=== PATIENT | male | born 1955 | race Two or more races ===

== ENCOUNTER 2022-12-24 09:01 | Inpatient (IN) | payer OTHER ==
[~2022-12-24] VITALS: Ht 170.2 cm; Wt 51.9 kg
[2022-12-24] VITALS (16 sets, daily range): BP systolic 125–155; BP diastolic 69–86
[2022-12-24] MEDS ORDERED: NITROGLYCERIN 0.4 MG SL TAB SL ONE ×2 (09:12→09:15)
[2022-12-24] MEDS ORDERED: NITROGLYCERIN 50MG/250ML 250 ML IV ONE ×2 (09:15→09:30)
[2022-12-24] MEDS ORDERED: DexAMETHasone SOD PHOS 10MG/1ML VIAL INJ IV ONE (09:15)
[2022-12-24] MEDS ORDERED: ALBUTEROL SULF 2.5 MG/0.5ML(0.5%) NEB SOLN ONE (09:19)
[2022-12-24] MEDS ORDERED: IPRATROPIUM BROM 0.5 MG/2.5ML INH SOL ONE (09:19)
[2022-12-24] MEDS: MAGNESIUM SULFATE 1GM/100ML 100 ML IV SCH ×2 (09:26→10:30)
[2022-12-24] MEDS ORDERED: ALBUTEROL SULF 2.5 MG/0.5ML(0.5%) NEB SOLN NEB ONE (09:30)
[2022-12-24] MEDS ORDERED: IPRATROPIUM BROM 0.5 MG/2.5ML INH SOL NEB ONE (09:30)
[2022-12-24 09:45] LABS: Hematocrit 30.6 % (41.0-53.0); Hemoglobin 10.1 g/dL (13.5-17.5); Mean Corpuscular Hemoglobin 32.3 pg (28.0-32.0); Red Blood Cells 3.12 10^6/uL (4.5-5.90); Red Cell Distribution Width 15.1 % (11.8-14.3); White Blood Cell 12.9 10^3/uL (4.4-10.8)
[2022-12-24] MEDS ORDERED: CEFEPIME 1GM/ 50ML 50 ML IV ONE ×2 (09:45→10:00)
[2022-12-24 09:50] LABS: Basophils % (manual) 0 (0.0-2.0); Blast Cells 0; Metamyelocytes % 0; Myelocytes % 0; Promyelocytes % 0; Reactive Lymphocytes 0
[2022-12-24 10:04] LABS: Calcium 9.1 mg/dL (8.5-10.1); Potassium 3.8 mmol/L (3.5-5.1)
[2022-12-24 10:12] LABS: Albumin 3.1 g/dL (3.4-5.0); BUN/Creatinine Ratio 8.8 (10.0-20.0); Magnesium 2.2 mg/dL (1.6-2.6); Total Protein 5.9 g/dL (6.4-8.2)
[2022-12-24] MEDS ORDERED: ASPirin 325 MG TAB PO ONE ×2 (10:45→21:00)
[2022-12-24] MEDS ORDERED: VANCOMYCIN 1GM/250ML 250 ML IV ONE (11:00)
[2022-12-24 11:14] LABS: Band Neutrophils % (manual) 3; Eosinophils % (manual) 2 (0-7); Lymphocytes % (manual) 1 (10.0-50.0); Monocytes % (manual) 9 (0-12)
[2022-12-24] MEDS ORDERED: HYDROcodone-ACET 5/325MG TAB PO PRN (12:15)
[2022-12-24] MEDS ORDERED: ACETAMINOPHEN 325 MG TAB PO PRN (12:15)
[2022-12-24] MEDS ORDERED: DOCUSATE SOD 100 MG CAP PO PRN (12:15)
[2022-12-24] MEDS ORDERED: IPRATROPIUM BROM 0.5 MG/2.5ML INH SOL NEB PRN (12:15)
[2022-12-24] MEDS ORDERED: NITROGLYCERIN 0.4 MG SL TAB SL PRN (12:15)
[2022-12-24] MEDS ORDERED: ONDANSETRON HCL 4 MG/2 ML VIAL IV PRN (12:15)
[2022-12-24] MEDS ORDERED: MORPHINE SULFATE INJ 2 MG/ml SYRG IV PRN ×2 (12:15)
[2022-12-24] MEDS ORDERED: IOHEXOL 350 MG/ML 100ML IJ ONE (16:00)
[2022-12-24] MEDS ORDERED: HEPARIN DRIP/D5W 100UNITS/ML 250 ML IV SCH (20:30)
[2022-12-24] MEDS ORDERED: HEPARIN SODIUM (PORCINE) 5000 UNITS/ML 1ML VIAL IV ONE (20:30)
[2022-12-24 21:23] LABS: Basophils # (auto) 0 10 ^3/uL (0-0.2); Eosinophils # (auto) 0 10 ^3/uL (0-0.8); Lymphocytes # (auto) 0.4 10 ^3/uL (0.4-5.4); Monocytes # (auto) 0.2 10 ^3/uL (0-1.3); Red Blood Cells 2.72 10^6/uL (4.5-5.90)
[2022-12-24 21:24] LABS: Basophils % (auto) 0.4 % (0.0-2.0); Hematocrit 27.4 % (41.0-53.0); Hemoglobin 9.3 g/dL (13.5-17.5); Lymphocytes % (auto) 4.8 % (10.0-50.0); Mean Corpuscular Hemoglobin 34.3 pg (28.0-32.0); Mean Corpuscular Volume 100.7 fL (80.0-100.0); Neutrophils # (auto) 7.3 10 ^3/uL (1.6-8.6); Neutrophils % (auto) 91.8 % (37.0-80.0); Red Cell Distribution Width 14.9 % (11.8-14.3); White Blood Cell 7.9 10^3/uL (4.4-10.8)
[2022-12-24 22:06] LABS: INR 5.9 (0.9-1.15); Partial Thromboplastin Time 89.4 sec (24.6-33.4)
[2022-12-25] VITALS (75 sets, daily range): BP systolic 76–137; BP diastolic 44–86
[2022-12-25 05:16] LABS: Mean Corpuscular Hemoglobin 34.7 pg (28.0-32.0); Red Cell Distribution Width 15.1 % (11.8-14.3)
[2022-12-25 05:17] LABS: Albumin 2.5 g/dL (3.4-5.0); Calcium 8.9 mg/dL (8.5-10.1); Potassium 4.1 mmol/L (3.5-5.1)
[2022-12-25 05:18] LABS: Hemoglobin 9.9 g/dL (13.5-17.5); Mean Corpuscular Hgb Conc. 35.3 g/dL (32.0-36.0); Mean Corpuscular Volume 98.3 fL (80.0-100.0); Red Blood Cells 2.85 10^6/uL (4.5-5.90); White Blood Cell 7.7 10^3/uL (4.4-10.8)
[2022-12-25 05:22] LABS: BUN/Creatinine Ratio 9.1 (10.0-20.0); Bilirubin, Total 0.5 mg/dL (0.2-1.0); Total Protein 5.5 g/dL (6.4-8.2)
[2022-12-25 05:26] LABS: Basophils % (manual) 0 (0.0-2.0); Blast Cells 0; Eosinophils % (manual) 0 (0-7); Metamyelocytes % 0; Myelocytes % 0; Promyelocytes % 0; Reactive Lymphocytes 0
[2022-12-25 05:43] LABS: INR 6.71 (0.9-1.15)
[2022-12-25 05:47] LABS: Partial Thromboplastin Time > 139.0 sec (24.6-33.4)
[2022-12-25] MEDS ORDERED: cefTRIAXone 1GM/50ML D5W 50 ML IV SCH (06:00)
[2022-12-25] MEDS ORDERED: HEPARIN DRIP/D5W 100UNITS/ML 250 ML IV SCH ×2 (06:45→12:52)
[2022-12-25] MEDS ORDERED: REMDESIVIR PER PHARMACY 0 ML IV SCH (06:45)
[2022-12-25] MEDS ORDERED: AZITHROMYCIN 500MG/ 250ML 250 ML IV SCH (07:00)
[2022-12-25 07:01] LABS: Band Neutrophils % (manual) 4; Lymphocytes % (manual) 6 (10.0-50.0); Monocytes % (manual) 5 (0-12)
[2022-12-25] MEDS: ASPirin 81 mg TAB PO SCH (10:00)
[2022-12-25] MEDS: cefTRIAXone 1GM/50ML D5W 50 ML IV SCH (11:16)
[2022-12-25 11:52] LABS: INR 6.16 (0.9-1.15)
[2022-12-25 11:53] LABS: Partial Thromboplastin Time 94.5 sec (24.6-33.4)
[2022-12-25] MEDS ORDERED: ERGO1CAP12 PO (12:07)
[2022-12-25] MEDS ORDERED: PANT40T PO (12:07)
[2022-12-25] MEDS ORDERED: WARF5TAB71 PO (12:07)
[2022-12-25] MEDS ORDERED: ATOR40TA52 PO (12:07)
[2022-12-25] MEDS ORDERED: CARV6.2551 PO (12:07)
[2022-12-25] MEDS ORDERED: PRED10TA PO (12:07)
[2022-12-25] MEDS: AZITHROMYCIN 500MG/ 250ML 250 ML IV SCH (12:16)
[2022-12-25] MEDS: ALBUMIN 25% 100 ML IV SCH ×2 (14:50→21:30)
[2022-12-25] MEDS ORDERED: REMDESIVIR 100mg 100 MG in SODIUM CHL 0.9% 230 ML IV ONE (15:00)
[2022-12-25] MEDS ORDERED: PHYTONADIONE (VIT K)10 MG/ML 1ML VIAL SUBCUT ONE ×2 (15:15→21:30)
[2022-12-25 17:52] LABS: INR 7.36 (0.9-1.15); Partial Thromboplastin Time 117.6 sec (24.6-33.4)
[2022-12-25] MEDS ORDERED: EPOETIN ALFA-EPBX 10,000 UNIT/1ML VIAL SC ONE (21:00)
[2022-12-25] MEDS ORDERED: PANTOPRAZOLE 40 MG/10 ML VIAL INJ IV ONE (21:30)
[2022-12-25] MEDS: ATORVASTATIN 20 MG TAB PO SCH ×2 (21:34→22:00)
[2022-12-26] VITALS (48 sets, daily range): BP systolic 99–184; BP diastolic 57–100
[2022-12-26 04:54] LABS: Basophils # (auto) 0 10 ^3/uL (0-0.2); Basophils % (auto) 0.4 % (0.0-2.0); Eosinophils # (auto) 0 10 ^3/uL (0-0.8); Eosinophils % (auto) 0.4 % (0.0-7.0); Hematocrit 22.8 % (41.0-53.0); Lymphocytes # (auto) 0.6 10 ^3/uL (0.4-5.4); Lymphocytes % (auto) 7.7 % (10.0-50.0); Mean Corpuscular Hemoglobin 34.5 pg (28.0-32.0); Mean Corpuscular Hgb Conc. 34.9 g/dL (32.0-36.0); Mean Corpuscular Volume 98.7 fL (80.0-100.0); Monocytes # (auto) 0.6 10 ^3/uL (0-1.3); Monocytes % (auto) 7.8 % (0.0-12.0); Neutrophils % (auto) 83.7 % (37.0-80.0); Red Blood Cells 2.31 10^6/uL (4.5-5.90); Red Cell Distribution Width 15.3 % (11.8-14.3); White Blood Cell 7.2 10^3/uL (4.4-10.8)
[2022-12-26] MEDS: ALBUMIN 25% 100 ML IV SCH (05:23)
[2022-12-26 05:52] LABS: INR 5.69 (0.9-1.15); Partial Thromboplastin Time 97.8 sec (24.6-33.4)
[2022-12-26 05:57] LABS: Albumin 2.5 g/dL (3.4-5.0); BUN/Creatinine Ratio 7.7 (10.0-20.0); Bilirubin, Total 0.4 mg/dL (0.2-1.0); Potassium 3.1 mmol/L (3.5-5.1); Total Protein 5.3 g/dL (6.4-8.2)
[2022-12-26] MEDS ORDERED: PHYTONADIONE (VIT K)10 MG/ML 1ML VIAL SUBCUT ONE (06:15)
[2022-12-26] MEDS: cefTRIAXone 1GM/50ML D5W 50 ML IV SCH (08:48)
[2022-12-26] MEDS: ASPirin 81 mg TAB PO SCH (08:49)
[2022-12-26] MEDS ORDERED: PANTOPRAZOLE 40 MG/10 ML VIAL INJ IV SCH (10:00)
[2022-12-26] MEDS: DexAMETHasone 4 MG TAB PO SCH (10:05)
[2022-12-26] MEDS: AZITHROMYCIN 500MG/ 250ML 250 ML IV SCH (10:05)
[2022-12-26 13:47] LABS: Hematocrit 25.5 % (41.0-53.0); Hemoglobin 8.8 g/dL (13.5-17.5)
[2022-12-26 13:54] LABS: INR 3.03 (0.9-1.15); Partial Thromboplastin Time 61.9 sec (24.6-33.4)
[2022-12-26] MEDS ORDERED: REMDESIVIR 100mg 50 MG in SODIUM CHL 0.9% 240 ML IV SCH (15:00)
[2022-12-26] MEDS: ATORVASTATIN 20 MG TAB PO SCH ×2 (20:51→21:44)
[2022-12-26] MEDS: PANTOPRAZOLE 40 MG/10 ML VIAL INJ IV SCH (21:44)
[2022-12-27] VITALS (25 sets, daily range): BP systolic 125–176; BP diastolic 73–95
[2022-12-27 05:05] LABS: Hemoglobin 8.2 g/dL (13.5-17.5)
[2022-12-27 05:07] LABS: Hematocrit 23.3 % (41.0-53.0); Mean Corpuscular Hemoglobin 34.6 pg (28.0-32.0); Mean Corpuscular Hgb Conc. 35.3 g/dL (32.0-36.0); Red Blood Cells 2.38 10^6/uL (4.5-5.90); Red Cell Distribution Width 15.1 % (11.8-14.3); White Blood Cell 6.1 10^3/uL (4.4-10.8)
[2022-12-27 05:08] LABS: Albumin 2.7 g/dL (3.4-5.0); Potassium 3.7 mmol/L (3.5-5.1)
[2022-12-27 05:10] LABS: Basophils % (manual) 0 (0.0-2.0); Blast Cells 0; Eosinophils % (manual) 0 (0-7); Metamyelocytes % 0; Myelocytes % 0; Promyelocytes % 0; Reactive Lymphocytes 0
[2022-12-27 05:11] LABS: BUN/Creatinine Ratio 7.9 (10.0-20.0); Bilirubin, Total 0.5 mg/dL (0.2-1.0); Total Protein 5.3 g/dL (6.4-8.2)
[2022-12-27 05:12] LABS: INR 1.29 (0.9-1.15); Partial Thromboplastin Time 45.8 sec (24.6-33.4)
[2022-12-27] MEDS ORDERED: SODIUM CHL 0.9% 1000 ML BAG XX ONE (07:00)
[2022-12-27 09:08] LABS: Band Neutrophils % (manual) 1; Lymphocytes % (manual) 9 (10.0-50.0); Monocytes % (manual) 4 (0-12)
[2022-12-27] MEDS: cefTRIAXone 1GM/50ML D5W 50 ML IV SCH (09:13)
[2022-12-27] MEDS: PANTOPRAZOLE 40 MG/10 ML VIAL INJ IV SCH ×2 (09:15→20:52)
[2022-12-27] MEDS: ASPirin 81 mg TAB PO SCH (09:15)
[2022-12-27] MEDS: DexAMETHasone 4 MG TAB PO SCH (09:16)
[2022-12-27] MEDS: HEPARIN SODIUM (PORCINE) 5000 UNITS/ML 1ML VIAL SC SCH ×2 (09:17→20:52)
[2022-12-27] MEDS: AZITHROMYCIN 500MG/ 250ML 250 ML IV SCH (10:04)
[2022-12-27] MEDS: ATORVASTATIN 20 MG TAB PO SCH (20:52)
[2022-12-28] VITALS (16 sets, daily range): BP systolic 106–184; BP diastolic 58–96
[2022-12-28 05:39] LABS: Hematocrit 23.2 % (41.0-53.0); Hemoglobin 8.4 g/dL (13.5-17.5)
[2022-12-28 05:50] LABS: INR 1.05 (0.9-1.15); Partial Thromboplastin Time 37.5 sec (24.6-33.4)
[2022-12-28 05:53] LABS: Calcium 9.2 mg/dL (8.5-10.1); Potassium 3.7 mmol/L (3.5-5.1)
[2022-12-28 05:58] LABS: Albumin 2.6 g/dL (3.4-5.0); BUN/Creatinine Ratio 9.1 (10.0-20.0); Bilirubin, Total 0.4 mg/dL (0.2-1.0); Total Protein 5.3 g/dL (6.4-8.2)
[2022-12-28] MEDS: PANTOPRAZOLE 40 MG/10 ML VIAL INJ IV SCH ×2 (09:16→21:46)
[2022-12-28] MEDS: AZITHROMYCIN 500MG/ 250ML 250 ML IV SCH (09:17)
[2022-12-28] MEDS: ASPirin 81 mg TAB PO SCH (09:17)
[2022-12-28] MEDS: cefTRIAXone 1GM/50ML D5W 50 ML IV SCH (09:17)
[2022-12-28] MEDS: HEPARIN SODIUM (PORCINE) 5000 UNITS/ML 1ML VIAL SC SCH ×2 (09:18→21:49)
[2022-12-28] MEDS: DexAMETHasone 4 MG TAB PO SCH (09:37)
[2022-12-28] MEDS: ATORVASTATIN 20 MG TAB PO SCH (21:50)
[2022-12-29] VITALS (10 sets, daily range): BP systolic 140–176; BP diastolic 80–94
[2022-12-29 05:29] LABS: Hematocrit 24.9 % (41.0-53.0); Hemoglobin 8.5 g/dL (13.5-17.5)
[2022-12-29 05:40] LABS: Potassium 4.2 mmol/L (3.5-5.1)
[2022-12-29 05:50] LABS: Albumin 2.7 g/dL (3.4-5.0); BUN/Creatinine Ratio 9.7 (10.0-20.0); Bilirubin, Total 0.3 mg/dL (0.2-1.0); Calcium 9.2 mg/dL (8.5-10.1); Total Protein 5.5 g/dL (6.4-8.2)
[2022-12-29] MEDS: cefTRIAXone 1GM/50ML D5W 50 ML IV SCH (09:32)
[2022-12-29] MEDS: PANTOPRAZOLE 40 MG/10 ML VIAL INJ IV SCH ×2 (10:12→20:09)
[2022-12-29] MEDS: ASPirin 81 mg TAB PO SCH (10:12)
[2022-12-29] MEDS: DexAMETHasone 4 MG TAB PO SCH (10:12)
[2022-12-29] MEDS: AZITHROMYCIN 500MG/ 250ML 250 ML IV SCH (10:12)
[2022-12-29] MEDS: HEPARIN SODIUM (PORCINE) 5000 UNITS/ML 1ML VIAL SC SCH ×2 (10:13→20:10)
[2022-12-29] MEDS: ATORVASTATIN 20 MG TAB PO SCH (20:09)
[2022-12-30] VITALS (8 sets, daily range): BP systolic 153–192; BP diastolic 80–111
[2022-12-30] MEDS: LABETALOL HCL 5 MG/ML 4ML SYRINGE IV PRN ×5 (01:32→18:03)
[2022-12-30] MEDS: cefTRIAXone 1GM/50ML D5W 50 ML IV SCH (08:41)
[2022-12-30] MEDS: ASPirin 81 mg TAB PO SCH (09:09)
[2022-12-30] MEDS: DexAMETHasone 4 MG TAB PO SCH (09:10)
[2022-12-30] MEDS: PANTOPRAZOLE 40 MG/10 ML VIAL INJ IV SCH ×2 (09:10→21:36)
[2022-12-30] MEDS: AZITHROMYCIN 500MG/ 250ML 250 ML IV SCH (09:10)
[2022-12-30] MEDS: HEPARIN SODIUM (PORCINE) 5000 UNITS/ML 1ML VIAL SC SCH ×2 (09:16→21:42)
[2022-12-30] MEDS ORDERED: amLODIPine BESYLATE 5 MG TAB PO ONE (15:00)
[2022-12-30] MEDS: MEROPENEM 1GM IVPB 100 ML IV SCH (18:46)
[2022-12-30] MEDS: ATORVASTATIN 20 MG TAB PO SCH (21:36)
[2022-12-31] VITALS (16 sets, daily range): BP systolic 102–170; BP diastolic 60–90
[2022-12-31 05:58] LABS: Albumin 2.8 g/dL (3.4-5.0); Calcium 9.5 mg/dL (8.5-10.1); Potassium 3.9 mmol/L (3.5-5.1)
[2022-12-31] MEDS: MEROPENEM 1GM IVPB 100 ML IV SCH ×2 (06:00→17:44)
[2022-12-31 06:01] LABS: BUN/Creatinine Ratio 9.7 (10.0-20.0); Bilirubin, Total 0.3 mg/dL (0.2-1.0); Total Protein 5.2 g/dL (6.4-8.2)
[2022-12-31 06:02] LABS: Hematocrit 24.3 % (41.0-53.0); Hemoglobin 8.5 g/dL (13.5-17.5)
[2022-12-31] MEDS: LABETALOL HCL 5 MG/ML 4ML SYRINGE IV PRN (06:07)
[2022-12-31] MEDS ORDERED: SODIUM CHL 0.9% 1000 ML BAG XX ONE (07:00)
[2022-12-31] MEDS: DexAMETHasone 4 MG TAB PO SCH (08:11)
[2022-12-31] MEDS: ASPirin 81 mg TAB PO SCH (08:11)
[2022-12-31] MEDS: PANTOPRAZOLE 40 MG/10 ML VIAL INJ IV SCH ×2 (08:11→22:01)
[2022-12-31] MEDS: AZITHROMYCIN 500MG/ 250ML 250 ML IV SCH (08:12)
[2022-12-31] MEDS: HEPARIN SODIUM (PORCINE) 5000 UNITS/ML 1ML VIAL SC SCH ×2 (08:13→22:04)
[2022-12-31] MEDS: amLODIPine BESYLATE 5 MG TAB PO SCH (08:30)
[2022-12-31] MEDS ORDERED: EPOETIN ALFA-EPBX 4,000 UNIT/ML VIAL SC ONE (21:00)
[2022-12-31] MEDS ORDERED: HEPARIN SODIUM (PORCINE) 5000 UNITS/ML 1ML VIAL ONE (21:48)
[2022-12-31] MEDS: ATORVASTATIN 20 MG TAB PO SCH (22:01)
[2023-01-01] VITALS (7 sets, daily range): BP systolic 123–152; BP diastolic 73–89
[2023-01-01 04:53] LABS: Hemoglobin 8.7 g/dL (13.5-17.5)
[2023-01-01 05:05] LABS: BUN/Creatinine Ratio 6.7 (10.0-20.0); Calcium 10.1 mg/dL (8.5-10.1); Potassium 4.3 mmol/L (3.5-5.1)
[2023-01-01] MEDS: MEROPENEM 1GM IVPB 100 ML IV SCH ×2 (06:14→18:40)
[2023-01-01] MEDS: PANTOPRAZOLE 40 MG/10 ML VIAL INJ IV SCH ×2 (13:05→21:56)
[2023-01-01] MEDS: ASPirin 81 mg TAB PO SCH (13:06)
[2023-01-01] MEDS: amLODIPine BESYLATE 5 MG TAB PO SCH (13:07)
[2023-01-01] MEDS: AZITHROMYCIN 500MG/ 250ML 250 ML IV SCH (13:08)
[2023-01-01] MEDS: DexAMETHasone 4 MG TAB PO SCH (13:08)
[2023-01-01] MEDS: HEPARIN SODIUM (PORCINE) 5000 UNITS/ML 1ML VIAL SC SCH ×2 (14:52→21:55)
[2023-01-01] MEDS: ATORVASTATIN 20 MG TAB PO SCH (21:53)
[2023-01-02 04:55] LABS: Hemoglobin 9.7 g/dL (13.5-17.5); White Blood Cell 8.2 10^3/uL (4.4-10.8)
[2023-01-02 04:57] LABS: Hematocrit 27.2 % (41.0-53.0); Mean Corpuscular Hemoglobin 35.2 pg (28.0-32.0); Mean Corpuscular Hgb Conc. 35.9 g/dL (32.0-36.0); Mean Corpuscular Volume 98.2 fL (80.0-100.0); Red Blood Cells 2.77 10^6/uL (4.5-5.90); Red Cell Distribution Width 15.7 % (11.8-14.3)
[2023-01-02 04:59] LABS: Band Neutrophils % (manual) 0; Basophils % (manual) 0 (0.0-2.0); Blast Cells 0; Eosinophils % (manual) 0 (0-7); Metamyelocytes % 0; Myelocytes % 0; Promyelocytes % 0; Reactive Lymphocytes 0
[2023-01-02 05:00] VITALS: BP 157/92
[2023-01-02 05:09] LABS: Calcium 9.6 mg/dL (8.5-10.1); Potassium 4.9 mmol/L (3.5-5.1)
[2023-01-02 05:14] LABS: BUN/Creatinine Ratio 7.3 (10.0-20.0); Bilirubin, Total 0.5 mg/dL (0.2-1.0); Total Protein 5.6 g/dL (6.4-8.2)
[2023-01-02 06:15] VITALS: BP 146/86
[2023-01-02] MEDS: MEROPENEM 1GM IVPB 100 ML IV SCH (06:27)
[2023-01-02 08:07] LABS: Lymphocytes % (manual) 14 (10.0-50.0); Monocytes % (manual) 7 (0-12)
[2023-01-02] MEDS ORDERED: SODIUM CHL 0.9% 1000 ML BAG XX ONE (08:30)
[2023-01-02 09:32] VITALS: BP 182/101
[2023-01-02 17:28] VITALS: BP 138/75
[2023-01-02] MEDS: ATORVASTATIN 20 MG TAB PO SCH (21:57)
[2023-01-02] MEDS: PANTOPRAZOLE 40 MG/10 ML VIAL INJ IV SCH (21:57)
[2023-01-02] MEDS: HEPARIN SODIUM (PORCINE) 5000 UNITS/ML 1ML VIAL SC SCH (21:59)
[2023-01-02 22:00] VITALS: BP 106/80
[2023-01-02] MEDS ORDERED: MEROPENEM 500MG IVPB 50 ML IV SCH (22:00)
[2023-01-03 05:00] VITALS: BP 122/80
[2023-01-03 09:00] VITALS: BP 126/79
[2023-01-03] MEDS ORDERED: AML5T PO (09:45)
[2023-01-03] MEDS ORDERED: ATOR20TA50 PO (09:45)
[2023-01-03] MEDS ORDERED: ASPI-325 PO (09:45)
[2023-01-03] MEDS ORDERED: ERTAPENEM SOD INJ 1 GM in SODIUM CHL 0.9% 50 ML IV ONE (10:00)
[2023-01-03] MEDS: PANTOPRAZOLE 40 MG/10 ML VIAL INJ IV SCH (10:09)
[2023-01-03] MEDS: ASPirin 81 mg TAB PO SCH ×2 (10:10→10:22)
[2023-01-03] MEDS: DexAMETHasone 4 MG TAB PO SCH ×2 (10:10→10:22)
[2023-01-03] MEDS: amLODIPine BESYLATE 5 MG TAB PO SCH ×2 (10:11→10:22)
[2023-01-03] MEDS: HEPARIN SODIUM (PORCINE) 5000 UNITS/ML 1ML VIAL SC SCH (10:20)
[2023-01-03 13:00] VITALS: BP 103/59
[2023-01-03 16:36] VITALS: BP 128/78
[2023-01-03 17:00] VITALS: BP 107/63
[2023-01-04] MEDS ORDERED: SODIUM CHL 0.9% 1000 ML BAG XX ONE (07:00)
[2023-01-04] MEDS ORDERED: EPOETIN ALFA-EPBX 4,000 UNIT/ML VIAL SC ONE (21:00)
== END 2023-01-03 18:35 | disposition home health service (06) | DRG 177 ==
LOC: ER 09:01 → EDBD 09:01 → TELE 12:15 → ICU CENTRL 19:45 → DOU IN ICU 12-28 23:22 → TELE-CENTR 01-01 15:15
PROVIDERS: ADMIT Nurse Practitioner; ATTEND Nurse Practitioner
PROC: 5A09357 Assistance with Respiratory Ventilation, Less than 24 Consecutive Hours, Continuous Positive Airway Pressure (ICD-10-PCS; principal; 2022-12-24)
PROC: 5A1D70Z Performance of Urinary Filtration, Intermittent, Less than 6 Hours Per Day (ICD-10-PCS; 2022-12-25)
PROC: 5A1D70Z Performance of Urinary Filtration, Intermittent, Less than 6 Hours Per Day (ICD-10-PCS; 2022-12-28)
PROC: 5A1D70Z Performance of Urinary Filtration, Intermittent, Less than 6 Hours Per Day (ICD-10-PCS; 2022-12-31)
PROC: 5A1D70Z Performance of Urinary Filtration, Intermittent, Less than 6 Hours Per Day (ICD-10-PCS; 2023-01-02)
PROC: 05HC33Z Insertion of Infusion Device into Left Basilic Vein, Percutaneous Approach (ICD-10-PCS; 2023-01-02)
PROC: B54NZZA Ultrasonography of Left Upper Extremity Veins, Guidance (ICD-10-PCS; 2023-01-02)
DX: U07.1 COVID-19 (principal); I21.3 ST elevation (STEMI) myocardial infarction of unspecified site; J12.82 Pneumonia due to coronavirus disease 2019; J81.0 Acute pulmonary edema; J96.01 Acute respiratory failure with hypoxia; N18.6 End stage renal disease; J90 Pleural effusion, not elsewhere classified; D68.9 Coagulation defect, unspecified; J98.11 Atelectasis; I12.0 Hypertensive chronic kidney disease with stage 5 chronic kidney disease or end stage renal disease; I16.0 Hypertensive urgency; D63.1 Anemia in chronic kidney disease; E78.00 Pure hypercholesterolemia, unspecified; M89.8X9 Other specified disorders of bone, unspecified site; K76.9 Liver disease, unspecified; K21.9 Gastro-esophageal reflux disease without esophagitis; Z86.11 Personal history of tuberculosis; Z99.2 Dependence on renal dialysis; Z79.82 Long term (current) use of aspirin; Z79.899 Other long term (current) drug therapy; Z79.01 Long term (current) use of anticoagulants; Z87.891 Personal history of nicotine dependence
CPT/HCPCS: 36415; 36600; 71045; 71275; 74176; 80048; 80053; 80061; 82805; 83605; 83735; 83880; 84443; 84484; 85007; 85014; 85018; 85025; 85027; 85379; 85610; 85730; 87040; 87070; 87077; 87081; 87186; 87205; 87426; 87804; 90935; 93005; 93306; 93970; 94640; 94660; 96365; 96366; 96368; 96375; 99291; C9113; G0378; J0696; J1100; J1335; J1642; J2185; J3430; J3490; P9047

== ENCOUNTER 2023-01-28 15:32 | Inpatient (IN) | payer OTHER, MEDICAID ==
[~2023-01-28] VITALS: Ht 165.1 cm; Wt 55.3 kg
[~2023-01-28 15:32] MED LIST: AML5T PO; ASPI-325 PO; ATOR20TA50 PO; ERGO1CAP12 PO; PANT40T PO
[2023-01-28] MEDS ORDERED: SODIUM CHLORIDE 0.9% 1,000 ML IV ONE ×2 (16:30→18:00)
[2023-01-28] MEDS ORDERED: cefTRIAXone 1GM/50ML D5W 50 ML IV ONE ×2 (17:00)
[2023-01-28] MEDS ORDERED: ACETAMINOPHEN 650 MG RECT SUPP PR ONE ×2 (17:00)
[2023-01-28 17:06] LABS: Hemoglobin 11.6 g/dL (13.5-17.5)
[2023-01-28 17:07] LABS: Hematocrit 34.1 % (41.0-53.0); Mean Corpuscular Hemoglobin 32.5 pg (28.0-32.0); Mean Corpuscular Volume 95.8 fL (80.0-100.0); Red Blood Cells 3.56 10^6/uL (4.5-5.90); Red Cell Distribution Width 15.2 % (11.8-14.3); White Blood Cell 8.2 10^3/uL (4.4-10.8)
[2023-01-28 17:17] LABS: Basophils % (manual) 0 (0.0-2.0); Blast Cells 0; Eosinophils % (manual) 0 (0-7); Metamyelocytes % 0; Myelocytes % 0; Promyelocytes % 0; Reactive Lymphocytes 0
[2023-01-28 17:23] LABS: Albumin 2.9 g/dL (3.4-5.0); Calcium 9.1 mg/dL (8.5-10.1); Potassium 3.8 mmol/L (3.5-5.1)
[2023-01-28 17:24] LABS: Lactic Acid w/Reflex 2.6 mmol/L (0.4-2.0)
[2023-01-28 17:27] LABS: BUN/Creatinine Ratio 4.8 (10.0-20.0); Bilirubin, Total 0.4 mg/dL (0.2-1.0); Total Protein 5.9 g/dL (6.4-8.2)
[2023-01-28] MEDS ORDERED: VANCOMYCIN 1GM/250ML 250 ML IV ONE (17:45)
[2023-01-28 18:50] LABS: Band Neutrophils % (manual) 4; INR 0.98 (0.9-1.15); Lymphocytes % (manual) 16 (10.0-50.0); Monocytes % (manual) 11 (0-12)
[2023-01-28] MEDS ORDERED: METOCLOPRAMIDE HCL 5MG/ml INJ 2ml VIAL IV PRN (20:15)
[2023-01-28] MEDS ORDERED: HYDROcodone-ACET 5/325MG TAB PO PRN (20:15)
[2023-01-28] MEDS ORDERED: MORPHINE SULFATE INJ 2 MG/ml SYRG IV PRN (20:15)
[2023-01-28] MEDS ORDERED: NITROGLYCERIN 0.4 MG SL TAB SL PRN (20:15)
[2023-01-28] MEDS ORDERED: DOCUSATE SOD 100 MG CAP PO PRN (20:15)
[2023-01-28] MEDS ORDERED: ACETAMINOPHEN 325 MG TAB PO PRN (20:15)
[2023-01-28] MEDS ORDERED: DEXTROSE (50%) 50ML SYRG IV PRN (20:45)
[2023-01-28] MEDS: AZITHROMYCIN 500MG/ 250ML 250 ML IV SCH (21:48)
[2023-01-28] MEDS ORDERED: InsuLIN REG 1unit/0.01ml Soln (100units/ml) SC SCH (22:00)
[2023-01-28] MEDS: ACCU-CHEK COMFORT CURVE STRIP VI SCH (22:26)
[2023-01-28] MEDS: ATORVASTATIN 20 MG TAB PO SCH (22:33)
[2023-01-28] MEDS: SODIUM CHLOR 0.9% PF (SALINE LOCK) 10ML VIAL/SYR IV SCH (22:33)
[2023-01-29] MEDS: SODIUM CHLOR 0.9% PF (SALINE LOCK) 10ML VIAL/SYR IV SCH ×3 (06:14→22:04)
[2023-01-29] MEDS: InsuLIN REG 1unit/0.01ml Soln (100units/ml) SC SCH ×2 (06:44→12:13)
[2023-01-29] MEDS: ACCU-CHEK COMFORT CURVE STRIP VI SCH ×2 (06:44→12:12)
[2023-01-29] MEDS ORDERED: ENOXAPARIN SOD 40 MG/0.4 ML SYRINGE SC SCH (10:00)
[2023-01-29] MEDS ORDERED: ERGOCALCIFEROL 50,000 UNIT(1.25MG) CAP PO SCH (10:00)
[2023-01-29] MEDS ORDERED: PANTOPRAZOLE 40 MG TAB PO SCH (10:00)
[2023-01-29] MEDS: AZITHROMYCIN 500MG/ 250ML 250 ML IV SCH (11:22)
[2023-01-29] MEDS: ASPirin-EC 81 mg tab PO SCH (11:32)
[2023-01-29] MEDS: amLODIPine BESYLATE 5 MG TAB PO SCH (11:33)
[2023-01-29 14:54] VITALS: BP 145/82
[2023-01-29] MEDS ORDERED: cefTRIAXone 1GM/50ML D5W 50 ML IV ONE (15:15)
[2023-01-29] MEDS ORDERED: VANCOMYCIN PER PHARMACY 0 MG IV SCH (16:30)
[2023-01-29] MEDS ORDERED: VANCOMYCIN 1GM/250ML 250 ML IV ONE (17:00)
[2023-01-29] MEDS: IPRATROPIUM BROM 0.5 MG/2.5ML INH SOL NEB SCH (18:01)
[2023-01-29] MEDS ORDERED: HEPARIN DRIP/D5W 100UNITS/ML 250 ML IV SCH (18:45)
[2023-01-29] MEDS ORDERED: IOHEXOL 350 MG/ML 100ML IJ ONE (20:18)
[2023-01-29] MEDS ORDERED: LORazepam 2MG/ML-1ML VIAL IV PRN (20:45)
[2023-01-29 21:56] LABS: INR 1.02 (0.9-1.15); Partial Thromboplastin Time 40.4 sec (24.6-33.4)
[2023-01-29] MEDS ORDERED: HEPARIN SODIUM (PORCINE) 5000 UNITS/ML 1ML VIAL SC SCH (22:00)
[2023-01-29] MEDS: ATORVASTATIN 20 MG TAB PO SCH (23:01)
[2023-01-29] MEDS: PANTOPRAZOLE 40 MG TAB PO SCH (23:01)
[2023-01-29] MEDS: MEROPENEM 500MG IVPB 50 ML IV SCH (23:01)
[2023-01-30 01:04] LABS: INR 1.05 (0.9-1.15); Partial Thromboplastin Time 50.5 sec (24.6-33.4)
[2023-01-30] MEDS: hydrALAZINE HCL 20 MG/ML VL IV PRN (01:22)
[2023-01-30] MEDS: SODIUM CHLOR 0.9% PF (SALINE LOCK) 10ML VIAL/SYR IV SCH ×3 (06:03→22:23)
[2023-01-30] MEDS: IPRATROPIUM BROM 0.5 MG/2.5ML INH SOL NEB SCH ×3 (06:04→19:07)
[2023-01-30 06:39] LABS: INR 1.02 (0.9-1.15); Partial Thromboplastin Time 50.4 sec (24.6-33.4)
[2023-01-30 07:53] LABS: Hematocrit 34.1 % (41.0-53.0); Hemoglobin 11.4 g/dL (13.5-17.5); Mean Corpuscular Hemoglobin 31.7 pg (28.0-32.0); Mean Corpuscular Hgb Conc. 33.6 g/dL (32.0-36.0); Mean Corpuscular Volume 94.4 fL (80.0-100.0); Red Blood Cells 3.61 10^6/uL (4.5-5.90); Red Cell Distribution Width 15.4 % (11.8-14.3)
[2023-01-30 07:56] LABS: Band Neutrophils % (manual) 0; Basophils % (manual) 0 (0.0-2.0); Blast Cells 0; Metamyelocytes % 0; Myelocytes % 0; Promyelocytes % 0; Reactive Lymphocytes 0
[2023-01-30 08:11] LABS: Albumin 2.4 g/dL (3.4-5.0); Calcium 9.4 mg/dL (8.5-10.1); Potassium 3.9 mmol/L (3.5-5.1)
[2023-01-30 08:23] LABS: BUN/Creatinine Ratio 5.7 (10.0-20.0); Bilirubin, Total 0.4 mg/dL (0.2-1.0); CRP High Sensitivity 16.3 mg/dL (< 0.3); Total Protein 5.9 g/dL (6.4-8.2)
[2023-01-30 08:26] LABS: Lymphocytes % (manual) 25 (10.0-50.0)
[2023-01-30 08:27] LABS: Eosinophils % (manual) 8 (0-7); Monocytes % (manual) 17 (0-12)
[2023-01-30] MEDS ORDERED: cefTRIAXone 1GM/50ML D5W 50 ML IV SCH (09:00)
[2023-01-30] MEDS: MEROPENEM 500MG IVPB 50 ML IV SCH ×2 (10:05→22:16)
[2023-01-30] MEDS: ASPirin-EC 81 mg tab PO SCH (10:05)
[2023-01-30] MEDS: amLODIPine BESYLATE 5 MG TAB PO SCH (10:06)
[2023-01-30] MEDS: PANTOPRAZOLE 40 MG TAB PO SCH ×2 (10:06→22:16)
[2023-01-30] MEDS: HEPARIN SODIUM (PORCINE) 5000 UNITS/ML 1ML VIAL SC SCH ×2 (10:07→22:23)
[2023-01-30 14:14] VITALS: BP 120/76
[2023-01-30 15:02] VITALS: BP 120/76
[2023-01-30 15:10] VITALS: BP 120/76
[2023-01-30 17:00] VITALS: BP 144/85
[2023-01-30 22:00] VITALS: BP 149/80
[2023-01-30] MEDS: ATORVASTATIN 20 MG TAB PO SCH (22:16)
[2023-01-31] VITALS (11 sets, daily range): BP systolic 101–139; BP diastolic 58–84
[2023-01-31] MEDS: SODIUM CHLOR 0.9% PF (SALINE LOCK) 10ML VIAL/SYR IV SCH ×3 (05:24→21:45)
[2023-01-31] MEDS: IPRATROPIUM BROM 0.5 MG/2.5ML INH SOL NEB SCH ×3 (06:57→18:54)
[2023-01-31] MEDS ORDERED: SODIUM CHL 0.9% 1000 ML BAG XX ONE (07:00)
[2023-01-31] MEDS ORDERED: LIDOCAINE VISCOUS 2% 15ML UD PO ONE (08:45)
[2023-01-31] MEDS ORDERED: MIDAZOLAM HCL 2MG/2ML 2ml VIAL (1mg/ml) IV ONE (08:45)
[2023-01-31] MEDS ORDERED: fentaNYL CITRATE 100 MCG/2 ML VL IV ONE (08:45)
[2023-01-31] MEDS: MEROPENEM 500MG IVPB 50 ML IV SCH ×2 (10:15→21:44)
[2023-01-31] MEDS: amLODIPine BESYLATE 5 MG TAB PO SCH (10:18)
[2023-01-31] MEDS: ASPirin-EC 81 mg tab PO SCH (10:18)
[2023-01-31] MEDS: PANTOPRAZOLE 40 MG TAB PO SCH ×2 (10:19→21:44)
[2023-01-31] MEDS: HEPARIN SODIUM (PORCINE) 5000 UNITS/ML 1ML VIAL SC SCH ×2 (10:20→21:53)
[2023-01-31] MEDS: ATORVASTATIN 20 MG TAB PO SCH (21:44)
[2023-02-01 05:00] VITALS: BP 113/68
[2023-02-01] MEDS: SODIUM CHLOR 0.9% PF (SALINE LOCK) 10ML VIAL/SYR IV SCH ×3 (05:10→21:18)
[2023-02-01] MEDS: IPRATROPIUM BROM 0.5 MG/2.5ML INH SOL NEB SCH ×3 (06:08→19:14)
[2023-02-01 07:30] VITALS: BP 131/73
[2023-02-01 09:00] VITALS: BP 184/117
[2023-02-01] MEDS: MEROPENEM 500MG IVPB 50 ML IV SCH ×2 (12:23→21:18)
[2023-02-01] MEDS: PANTOPRAZOLE 40 MG TAB PO SCH ×2 (12:24→21:18)
[2023-02-01] MEDS: amLODIPine BESYLATE 5 MG TAB PO SCH (12:24)
[2023-02-01] MEDS: ASPirin-EC 81 mg tab PO SCH (12:25)
[2023-02-01] MEDS: HEPARIN SODIUM (PORCINE) 5000 UNITS/ML 1ML VIAL SC SCH ×2 (12:25→21:25)
[2023-02-01 13:00] VITALS: BP 135/71
[2023-02-01 17:00] VITALS: BP 131/76
[2023-02-01] MEDS: ATORVASTATIN 20 MG TAB PO SCH (21:18)
[2023-02-01 22:00] VITALS: BP 133/84
[2023-02-02 05:00] VITALS: BP 135/80
[2023-02-02] MEDS: SODIUM CHLOR 0.9% PF (SALINE LOCK) 10ML VIAL/SYR IV SCH ×3 (06:00→21:20)
[2023-02-02] MEDS: IPRATROPIUM BROM 0.5 MG/2.5ML INH SOL NEB SCH ×3 (06:30→18:29)
[2023-02-02 09:00] VITALS: BP 121/72
[2023-02-02] MEDS: MEROPENEM 500MG IVPB 50 ML IV SCH ×2 (10:00→21:20)
[2023-02-02] MEDS: PANTOPRAZOLE 40 MG TAB PO SCH ×2 (10:00→21:19)
[2023-02-02] MEDS: ASPirin-EC 81 mg tab PO SCH (10:00)
[2023-02-02] MEDS: amLODIPine BESYLATE 5 MG TAB PO SCH (10:01)
[2023-02-02] MEDS: HEPARIN SODIUM (PORCINE) 5000 UNITS/ML 1ML VIAL SC SCH ×2 (10:05→21:26)
[2023-02-02 13:00] VITALS: BP 128/78
[2023-02-02 17:00] VITALS: BP 119/78
[2023-02-02] MEDS: ATORVASTATIN 20 MG TAB PO SCH (21:19)
[2023-02-02 22:00] VITALS: BP 136/82
[2023-02-03 05:12] VITALS: BP 151/94
[2023-02-03] MEDS: SODIUM CHLOR 0.9% PF (SALINE LOCK) 10ML VIAL/SYR IV SCH ×3 (05:39→21:40)
[2023-02-03] MEDS: IPRATROPIUM BROM 0.5 MG/2.5ML INH SOL NEB SCH ×3 (06:06→19:13)
[2023-02-03 08:30] VITALS: BP 142/85
[2023-02-03 08:56] VITALS: BP 142/85
[2023-02-03] MEDS: ASPirin-EC 81 mg tab PO SCH (10:07)
[2023-02-03] MEDS: MEROPENEM 500MG IVPB 50 ML IV SCH ×2 (10:07→21:31)
[2023-02-03] MEDS: PANTOPRAZOLE 40 MG TAB PO SCH (10:07)
[2023-02-03] MEDS: amLODIPine BESYLATE 5 MG TAB PO SCH (10:07)
[2023-02-03] MEDS: HEPARIN SODIUM (PORCINE) 5000 UNITS/ML 1ML VIAL SC SCH ×2 (10:13→21:47)
[2023-02-03 12:03] LABS: Hemoglobin 10.6 g/dL (13.5-17.5); Red Blood Cells 3.31 10^6/uL (4.5-5.90)
[2023-02-03 12:06] LABS: Hematocrit 32.5 % (41.0-53.0); Mean Corpuscular Hgb Conc. 32.6 g/dL (32.0-36.0); Mean Corpuscular Volume 98.2 fL (80.0-100.0); Red Cell Distribution Width 15.3 % (11.8-14.3); White Blood Cell 7.5 10^3/uL (4.4-10.8)
[2023-02-03 12:07] LABS: Potassium 4.2 mmol/L (3.5-5.1)
[2023-02-03 12:14] LABS: Albumin 2.6 g/dL (3.4-5.0); BUN/Creatinine Ratio 5.4 (10.0-20.0); Calcium 9.8 mg/dL (8.5-10.1); Magnesium 2.4 mg/dL (1.6-2.6)
[2023-02-03 12:16] LABS: Bilirubin, Total 0.4 mg/dL (0.2-1.0); Total Protein 6.2 g/dL (6.4-8.2)
[2023-02-03 13:06] LABS: Basophils % (manual) 0 (0.0-2.0); Blast Cells 0; Metamyelocytes % 0; Myelocytes % 0; Promyelocytes % 0; Reactive Lymphocytes 0
[2023-02-03 13:18] VITALS: BP 126/83
[2023-02-03 14:46] LABS: Hepatitis C Antibody Negative (Negative)
[2023-02-03 16:30] LABS: Band Neutrophils % (manual) 1; Lymphocytes % (manual) 19 (10.0-50.0)
[2023-02-03 16:32] LABS: Eosinophils % (manual) 7 (0-7); Monocytes % (manual) 20 (0-12)
[2023-02-03 16:52] VITALS: BP 139/78
[2023-02-03] MEDS: Nepro With Carbsteady Vanilla 8oz Carton PO SCH (17:57)
[2023-02-03] MEDS: ATORVASTATIN 20 MG TAB PO SCH (21:31)
[2023-02-03 22:00] VITALS: BP 135/81
[2023-02-04] VITALS (12 sets, daily range): BP systolic 112–185; BP diastolic 74–99
[2023-02-04] MEDS: SODIUM CHLOR 0.9% PF (SALINE LOCK) 10ML VIAL/SYR IV SCH ×3 (05:32→21:38)
[2023-02-04] MEDS: IPRATROPIUM BROM 0.5 MG/2.5ML INH SOL NEB SCH ×3 (06:07→19:28)
[2023-02-04 06:29] LABS: INR 1.01 (0.9-1.15)
[2023-02-04] MEDS ORDERED: SODIUM CHL 0.9% 1000 ML BAG XX ONE (07:00)
[2023-02-04] MEDS: Nepro With Carbsteady Vanilla 8oz Carton PO SCH ×2 (08:00→18:08)
[2023-02-04] MEDS ORDERED: IODIXANOL 320MG/ML 100ML BTL IV ONE ×3 (09:48→10:32)
[2023-02-04] MEDS ORDERED: LIDOCAINE 2%HCL (LOCAL ANESTH.) INJ 20ML MDV ONE (09:48)
[2023-02-04] MEDS ORDERED: HEPARIN SODIUM (PORCINE) 5000 UNITS/ML 1ML VIAL ONE (09:53)
[2023-02-04] MEDS ORDERED: ANGIOMAX 250 MG VIAL IV ONE (09:53)
[2023-02-04] MEDS ORDERED: fentaNYL CITRATE 100 MCG/2 ML VL ONE (09:53)
[2023-02-04] MEDS ORDERED: SODIUM CHL 0.9% 50 ML ONE (09:54)
[2023-02-04] MEDS ORDERED: MIDAZOLAM HCL 2MG/2ML 2ml VIAL (1mg/ml) ONE (09:54)
[2023-02-04] MEDS: amLODIPine BESYLATE 5 MG TAB PO SCH (10:00)
[2023-02-04] MEDS: MEROPENEM 500MG IVPB 50 ML IV SCH (10:00)
[2023-02-04] MEDS: ASPirin-EC 81 mg tab PO SCH (10:00)
[2023-02-04] MEDS: HEPARIN SODIUM (PORCINE) 5000 UNITS/ML 1ML VIAL SC SCH ×2 (10:00→21:42)
[2023-02-04] MEDS: PANTOPRAZOLE 40 MG TAB PO SCH (10:00)
[2023-02-04] MEDS ORDERED: ASPirin 325 MG TAB ONE (10:51)
[2023-02-04] MEDS ORDERED: TICAGRELOR 90 MG TAB ONE (10:51)
[2023-02-04] MEDS: hydrALAZINE HCL 20 MG/ML VL IV PRN (11:45)
[2023-02-04] MEDS ORDERED: VANCOMYCIN 1GM/250ML 250 ML IV ONE (17:00)
[2023-02-04] MEDS: DOXYCYCLINE 100 MG TAB/CAP PO SCH (21:37)
[2023-02-04] MEDS: ATORVASTATIN 20 MG TAB PO SCH (21:37)
[2023-02-04] MEDS: TICAGRELOR 90 MG TAB PO SCH (21:38)
[2023-02-04] MEDS: METOPROLOL TARTRATE 25 MG TAB PO SCH (21:39)
[2023-02-05 05:00] VITALS: BP 131/87
[2023-02-05] MEDS: SODIUM CHLOR 0.9% PF (SALINE LOCK) 10ML VIAL/SYR IV SCH ×3 (05:36→21:58)
[2023-02-05] MEDS: IPRATROPIUM BROM 0.5 MG/2.5ML INH SOL NEB SCH ×3 (06:35→19:07)
[2023-02-05 07:14] LABS: BUN/Creatinine Ratio 6.3 (10.0-20.0); Calcium 9.9 mg/dL (8.5-10.1); Potassium 3.7 mmol/L (3.5-5.1)
[2023-02-05 08:40] VITALS: BP_SYST 11; BP_SYST 117; BP_DIAS 83
[2023-02-05] MEDS: ASPirin-EC 81 mg tab PO SCH (09:44)
[2023-02-05] MEDS: PANTOPRAZOLE 40 MG TAB PO SCH (09:44)
[2023-02-05] MEDS: TICAGRELOR 90 MG TAB PO SCH ×2 (09:44→21:56)
[2023-02-05] MEDS: DOXYCYCLINE 100 MG TAB/CAP PO SCH ×2 (09:44→21:57)
[2023-02-05] MEDS: amLODIPine BESYLATE 5 MG TAB PO SCH (09:45)
[2023-02-05] MEDS: ENALAPRIL MALEATE 2.5 MG TAB PO SCH (09:45)
[2023-02-05] MEDS: METOPROLOL TARTRATE 25 MG TAB PO SCH ×2 (09:46→21:59)
[2023-02-05] MEDS: Nepro With Carbsteady Vanilla 8oz Carton PO SCH ×2 (09:46→18:00)
[2023-02-05] MEDS: HEPARIN SODIUM (PORCINE) 5000 UNITS/ML 1ML VIAL SC SCH ×2 (09:57→22:03)
[2023-02-05] MEDS ORDERED: MEROPENEM 500MG IVPB 50 ML IV SCH (10:00)
[2023-02-05 12:53] VITALS: BP 123/75
[2023-02-05 16:30] VITALS: BP 95/63
[2023-02-05] MEDS ORDERED: ENAL1TAB42 PO (18:23)
[2023-02-05] MEDS ORDERED: PANT40T PO (18:23)
[2023-02-05] MEDS ORDERED: TICA90TA PO ×2 (18:23→18:25)
[2023-02-05] MEDS ORDERED: ASPI1TAB20 PO ×2 (18:23→18:25)
[2023-02-05] MEDS ORDERED: DOXY-286 PO (18:25)
[2023-02-05] MEDS: ATORVASTATIN 20 MG TAB PO SCH (21:56)
[2023-02-05 22:00] VITALS: BP 113/75
[2023-02-06 05:00] VITALS: BP 122/83
[2023-02-06] MEDS: SODIUM CHLOR 0.9% PF (SALINE LOCK) 10ML VIAL/SYR IV SCH ×2 (05:44→14:00)
[2023-02-06] MEDS: IPRATROPIUM BROM 0.5 MG/2.5ML INH SOL NEB SCH ×2 (06:42→11:33)
[2023-02-06] MEDS ORDERED: SODIUM CHL 0.9% 1000 ML BAG XX ONE (07:00)
[2023-02-06] MEDS: amLODIPine BESYLATE 5 MG TAB PO SCH (10:00)
[2023-02-06] MEDS: ENALAPRIL MALEATE 2.5 MG TAB PO SCH (10:00)
[2023-02-06] MEDS: Nepro With Carbsteady Vanilla 8oz Carton PO SCH (10:06)
[2023-02-06] MEDS: ASPirin-EC 81 mg tab PO SCH (10:06)
[2023-02-06] MEDS: DOXYCYCLINE 100 MG TAB/CAP PO SCH (10:06)
[2023-02-06] MEDS: PANTOPRAZOLE 40 MG TAB PO SCH (10:07)
[2023-02-06] MEDS: TICAGRELOR 90 MG TAB PO SCH (10:07)
[2023-02-06] MEDS: METOPROLOL TARTRATE 25 MG TAB PO SCH (10:10)
[2023-02-06] MEDS: HEPARIN SODIUM (PORCINE) 5000 UNITS/ML 1ML VIAL SC SCH (10:15)
[2023-02-06] MEDS ORDERED: EPOETIN ALFA-EPBX 10,000 UNIT/1ML VIAL SC ONE (21:00)
== END 2023-02-06 14:00 | disposition home or self-care (01) | DRG 853 ==
LOC: EDBD 15:32 → EDUNIT# 15:32 → ER 15:37 → TELE 20:18 → TELE-CENTR 01-30 13:33
PROVIDERS: ADMIT Internal Medicine; ATTEND Nurse Practitioner
PROC: B246ZZ4 Ultrasonography of Right and Left Heart, Transesophageal (ICD-10-PCS; 2023-01-30)
PROC: 5A1D70Z Performance of Urinary Filtration, Intermittent, Less than 6 Hours Per Day (ICD-10-PCS; 2023-02-01)
PROC: B211YZZ Fluoroscopy of Multiple Coronary Arteries using Other Contrast (ICD-10-PCS; principal; 2023-02-04)
PROC: 027034Z Dilation of Coronary Artery, One Artery with Drug-eluting Intraluminal Device, Percutaneous Approach (ICD-10-PCS; 2023-02-04)
PROC: 4A023N7 Measurement of Cardiac Sampling and Pressure, Left Heart, Percutaneous Approach (ICD-10-PCS; 2023-02-04)
PROC: B215YZZ Fluoroscopy of Left Heart using Other Contrast (ICD-10-PCS; 2023-02-04)
PROC: B240ZZ3 Ultrasonography of Single Coronary Artery, Intravascular (ICD-10-PCS; 2023-02-04)
PROC: 5A1D70Z Performance of Urinary Filtration, Intermittent, Less than 6 Hours Per Day (ICD-10-PCS; 2023-02-04)
PROC: 5A1D70Z Performance of Urinary Filtration, Intermittent, Less than 6 Hours Per Day (ICD-10-PCS; 2023-02-06)
DX: A41.9 Sepsis, unspecified organism (principal); E43 Unspecified severe protein-calorie malnutrition; J18.9 Pneumonia, unspecified organism; G93.41 Metabolic encephalopathy; N18.6 End stage renal disease; J96.01 Acute respiratory failure with hypoxia; I63.9 Cerebral infarction, unspecified; I21.4 Non-ST elevation (NSTEMI) myocardial infarction; I12.0 Hypertensive chronic kidney disease with stage 5 chronic kidney disease or end stage renal disease; E87.20 Acidosis, unspecified; M31.30 Wegener's granulomatosis without renal involvement; G81.94 Hemiplegia, unspecified affecting left nondominant side; Z68.1 Body mass index [BMI] 19.9 or less, adult; J44.0 Chronic obstructive pulmonary disease with (acute) lower respiratory infection; E78.00 Pure hypercholesterolemia, unspecified; I95.9 Hypotension, unspecified; K21.9 Gastro-esophageal reflux disease without esophagitis; D63.1 Anemia in chronic kidney disease; I25.10 Atherosclerotic heart disease of native coronary artery without angina pectoris; I48.91 Unspecified atrial fibrillation; Z86.16 Personal history of COVID-19; Z99.2 Dependence on renal dialysis; Z79.02 Long term (current) use of antithrombotics/antiplatelets; Z79.899 Other long term (current) drug therapy; Z79.82 Long term (current) use of aspirin
CPT/HCPCS: 36415; 70450; 70551; 71045; 71275; 76604; 80048; 80053; 80202; 82140; 82962; 83520; 83605; 83735; 83880; 84484; 85007; 85027; 85379; 85610; 85652; 85730; 86141; 86160; 86162; 86256; 86803; 86850; 86900; 86901; 87040; 87081; 87340; 87493; 90935; 92941; 92978; 93005; 93306; 93312; 93458; 93886; 93970; 94640; 95819; 96365; 96368; 97110; 97116; 97163; 97530; 99152; 99291; C1887; G0378; J0696; J1642; J2185; J2250; Q9967

== ENCOUNTER 2023-02-22 12:49 | Inpatient (IN) | payer OTHER, MEDICAID ==
[~2023-02-22] VITALS: Ht 165.1 cm; Wt 53.2 kg
[~2023-02-22 12:49] MED LIST changes: +ASPI1TAB20 PO; +DOXY-286 PO; +ENAL1TAB42 PO; +TICA90TA PO
[2023-02-22 13:06] VITALS: PULSE 92; RESP 17; O2SAT 96
[2023-02-22] MEDS ORDERED: SODIUM CHLORIDE 0.9% 1,000 ML IV ONE (13:45)
[2023-02-22 14:07] LABS: Basophils # (auto) 0.1 10 ^3/uL (0-0.2); Eosinophils # (auto) 0.1 10 ^3/uL (0-0.8); Hematocrit 33.9 % (41.0-53.0); Lymphocytes # (auto) 0.7 10 ^3/uL (0.4-5.4); Neutrophils # (auto) 7.4 10 ^3/uL (1.6-8.6); Nucleated Red Blood Cells % 0.1 %; White Blood Cell 8.7 10^3/uL (4.4-10.8)
[2023-02-22 14:09] LABS: Eosinophils % (auto) 1.4 % (0.0-7.0); Hemoglobin 11.3 g/dL (13.5-17.5); Lymphocytes % (auto) 7.8 % (10.0-50.0); Mean Corpuscular Hemoglobin 31.4 pg (28.0-32.0); Mean Corpuscular Hgb Conc. 33.3 g/dL (32.0-36.0); Mean Corpuscular Volume 94.2 fL (80.0-100.0); Monocytes # (auto) 0.4 10 ^3/uL (0-1.3); Monocytes % (auto) 4.8 % (0.0-12.0); Red Cell Distribution Width 15.8 % (11.8-14.3)
[2023-02-22 14:24] LABS: INR 0.99 (0.9-1.15); Partial Thromboplastin Time 26.5 SEC (24.5-34.5)
[2023-02-22 14:31] LABS: Albumin 3.1 g/dL (3.4-5.0); Calcium 9.5 mg/dL (8.5-10.1); Magnesium 2.9 mg/dL (1.6-2.6); Potassium 4.1 mmol/L (3.5-5.1)
[2023-02-22 14:35] LABS: BUN/Creatinine Ratio 9.1 (10.0-20.0); Bilirubin, Total 0.4 mg/dL (0.2-1.0); Total Protein 5.9 g/dL (6.4-8.2)
[2023-02-22 15:39] LABS: Urine WBC None Seen /hpf (0 - 3)
[2023-02-22] MEDS ORDERED: ONDANSETRON HCL 4 MG/2 ML VIAL IV PRN ×2 (15:45→16:00)
[2023-02-22] MEDS ORDERED: DOCUSATE SOD 100 MG CAP PO PRN ×2 (15:45→16:00)
[2023-02-22] MEDS ORDERED: ACETAMINOPHEN 325 MG TAB PO PRN ×2 (15:45→16:00)
[2023-02-22 15:50] LABS: Urine Bacteria NONE SEEN /hpf (None Seen); Urine Blood Negative /uL (Negative); Urine Specific Gravity 1.008 (1.001-1.035)
[2023-02-22] MEDS ORDERED: HYDROcodone-ACET 5/325MG TAB PO PRN (16:00)
[2023-02-22] MEDS ORDERED: NITROGLYCERIN 0.4 MG SL TAB SL PRN (16:00)
[2023-02-22 20:00] VITALS: PULSE 94; RESP 18; O2SAT 99
[2023-02-22] MEDS: SODIUM CHLOR 0.9% PF (SALINE LOCK) 10ML VIAL/SYR IV SCH ×2 (22:00→22:07)
[2023-02-23] MEDS: SODIUM CHLOR 0.9% PF (SALINE LOCK) 10ML VIAL/SYR IV SCH ×4 (06:36→21:48)
[2023-02-23 08:47] VITALS: PULSE 89; RESP 16; O2SAT 96
[2023-02-23] MEDS ORDERED: ENOXAPARIN SOD 30 MG/0.3 ML SYRINGE SC SCH (10:00)
[2023-02-23] MEDS ORDERED: TICAGRELOR 90 MG TAB PO ONE (11:15)
[2023-02-23] MEDS: ASPirin-EC 81 mg tab PO SCH (12:56)
[2023-02-23] MEDS: ENALAPRIL MALEATE 2.5 MG TAB PO SCH (12:57)
[2023-02-23] MEDS: amLODIPine BESYLATE 5 MG TAB PO SCH (12:57)
[2023-02-23] MEDS ORDERED: HEPARIN DRIP/D5W 100UNITS/ML 250 ML IV SCH (16:00)
[2023-02-23] MEDS ORDERED: METOPROLOL TARTRATE 25 MG TAB PO ONE (16:00)
[2023-02-23] MEDS ORDERED: HEPARIN 1,000 UNITS/ml 1ML VIAL ONE (16:57)
[2023-02-23 19:18] LABS: Hematocrit 28.8 % (41.0-53.0); Hemoglobin 9.7 g/dL (13.5-17.5); Mean Corpuscular Hemoglobin 31.3 pg (28.0-32.0); Mean Corpuscular Hgb Conc. 33.5 g/dL (32.0-36.0); Mean Corpuscular Volume 93.4 fL (80.0-100.0); Red Blood Cells 3.08 10^6/uL (4.5-5.90); Red Cell Distribution Width 15.8 % (11.8-14.3); White Blood Cell 7.4 10^3/uL (4.4-10.8)
[2023-02-23 19:20] VITALS: PULSE 85; RESP 18; O2SAT 95
[2023-02-23 19:20] LABS: Basophils % (manual) 0 (0.0-2.0); Blast Cells 0; Metamyelocytes % 0; Myelocytes % 0; Promyelocytes % 0; Reactive Lymphocytes 0
[2023-02-23 19:55] LABS: Band Neutrophils % (manual) 1; Eosinophils % (manual) 17 (0-7); Lymphocytes % (manual) 29 (10.0-50.0); Monocytes % (manual) 14 (0-12)
[2023-02-23 20:01] LABS: Cholesterol 160 mg/dL (< 200); HDL Cholesterol 50 mg/dL (40-59); LDL Cholesterol 93 mg/dL (< 100); Triglycerides 63 mg/dL (< 150)
[2023-02-23] MEDS: ATORVASTATIN 20 MG TAB PO SCH (21:48)
[2023-02-23] MEDS: TICAGRELOR 90 MG TAB PO SCH (21:48)
[2023-02-23 22:30] VITALS: PULSE 60; RESP 20; O2SAT 95
[2023-02-24] VITALS (10 sets, daily range): BP systolic 139–169; BP diastolic 81–99; PULSE 76–101; RESP 14–20; TEMP 97.6–98.2; O2SAT 93–99
[2023-02-24 01:17] LABS: INR 1.02 (0.9-1.15)
[2023-02-24] MEDS: SODIUM CHLOR 0.9% PF (SALINE LOCK) 10ML VIAL/SYR IV SCH ×3 (06:09→21:36)
[2023-02-24] MEDS ORDERED: SODIUM CHL 0.9% 1000 ML BAG XX ONE (07:00)
[2023-02-24 07:20] LABS: INR 1.03 (0.9-1.15)
[2023-02-24 07:26] LABS: Partial Thromboplastin Time 78.8 SEC (24.5-34.5)
[2023-02-24] MEDS: ASPirin-EC 81 mg tab PO SCH (09:28)
[2023-02-24] MEDS: TICAGRELOR 90 MG TAB PO SCH ×2 (09:29→21:35)
[2023-02-24] MEDS: PANTOPRAZOLE 40 MG TAB PO SCH (09:29)
[2023-02-24] MEDS: ENALAPRIL MALEATE 2.5 MG TAB PO SCH (09:31)
[2023-02-24] MEDS: amLODIPine BESYLATE 5 MG TAB PO SCH ×2 (09:31→16:50)
[2023-02-24] MEDS: METOPROLOL SUCCINATE XL 50 MG TAB PO SCH (09:31)
[2023-02-24] MEDS ORDERED: LIDOCAINE 2%HCL (LOCAL ANESTH.) INJ 20ML MDV ONE (15:07)
[2023-02-24] MEDS ORDERED: IODIXANOL 320MG/ML 100ML BTL IV ONE (15:07)
[2023-02-24] MEDS ORDERED: fentaNYL CITRATE 100 MCG/2 ML VL ONE (15:10)
[2023-02-24] MEDS ORDERED: ANGIOMAX 250 MG VIAL IV ONE (15:10)
[2023-02-24] MEDS ORDERED: SODIUM CHL 0.9% 0 ML ONE (15:10)
[2023-02-24] MEDS ORDERED: MIDAZOLAM HCL 2MG/2ML 2ml VIAL (1mg/ml) ONE (15:10)
[2023-02-24] MEDS: ATORVASTATIN 20 MG TAB PO SCH (21:35)
[2023-02-25 05:00] VITALS: BP 139/88; PULSE 96; RESP 16; TEMP 97.4; O2SAT 96
[2023-02-25] MEDS: SODIUM CHLOR 0.9% PF (SALINE LOCK) 10ML VIAL/SYR IV SCH ×2 (05:36→14:00)
[2023-02-25] MEDS ORDERED: SODIUM CHL 0.9% 1000 ML BAG XX ONE (07:00)
[2023-02-25 07:21] VITALS: PULSE 100
[2023-02-25 09:00] VITALS: BP 140/83; PULSE 94; RESP 20; TEMP 98; O2SAT 100
[2023-02-25] MEDS: ASPirin-EC 81 mg tab PO SCH (10:33)
[2023-02-25] MEDS: amLODIPine BESYLATE 5 MG TAB PO SCH (10:34)
[2023-02-25] MEDS: TICAGRELOR 90 MG TAB PO SCH (10:34)
[2023-02-25] MEDS: ENALAPRIL MALEATE 2.5 MG TAB PO SCH (10:34)
[2023-02-25] MEDS: PANTOPRAZOLE 40 MG TAB PO SCH (10:34)
[2023-02-25] MEDS: METOPROLOL SUCCINATE XL 50 MG TAB PO SCH (10:35)
[2023-02-25 13:00] VITALS: BP 136/77; PULSE 83; RESP 20; TEMP 98.3; O2SAT 100
[2023-02-25 17:00] VITALS: BP 125/88; PULSE 98; RESP 18; TEMP 97.8; O2SAT 97
[2023-02-25] MEDS ORDERED: EPOETIN ALFA-EPBX 4,000 UNIT/ML VIAL SC ONE (21:00)
== END 2023-02-25 19:00 | disposition home or self-care (01) | DRG 280 ==
LOC: ER 12:49 → EDBD 12:49 → TELE 15:36 → TELE-WESTW 02-23 21:26
PROVIDERS: ADMIT Internal Medicine Pulmonary Disease; ATTEND Student in an Organized Health Care Education/Training Program
PROC: 4A023N7 Measurement of Cardiac Sampling and Pressure, Left Heart, Percutaneous Approach (ICD-10-PCS; principal; 2023-02-24)
PROC: B211YZZ Fluoroscopy of Multiple Coronary Arteries using Other Contrast (ICD-10-PCS; 2023-02-24)
PROC: B215YZZ Fluoroscopy of Left Heart using Other Contrast (ICD-10-PCS; 2023-02-24)
PROC: 5A1D70Z Performance of Urinary Filtration, Intermittent, Less than 6 Hours Per Day (ICD-10-PCS; 2023-02-24)
PROC: 5A1D70Z Performance of Urinary Filtration, Intermittent, Less than 6 Hours Per Day (ICD-10-PCS; 2023-02-25)
DX: I21.4 Non-ST elevation (NSTEMI) myocardial infarction (principal); N18.6 End stage renal disease; R79.89 Other specified abnormal findings of blood chemistry; I25.10 Atherosclerotic heart disease of native coronary artery without angina pectoris; E78.5 Hyperlipidemia, unspecified; E83.41 Hypermagnesemia; R80.9 Proteinuria, unspecified; K21.9 Gastro-esophageal reflux disease without esophagitis; D64.9 Anemia, unspecified; R55 Syncope and collapse; J44.9 Chronic obstructive pulmonary disease, unspecified; R74.01 Elevation of levels of liver transaminase levels; D75.839 Thrombocytosis, unspecified; Z99.2 Dependence on renal dialysis; Z86.73 Personal history of transient ischemic attack (TIA), and cerebral infarction without residual deficits; Z79.02 Long term (current) use of antithrombotics/antiplatelets; Z79.82 Long term (current) use of aspirin; Z87.01 Personal history of pneumonia (recurrent); Z95.5 Presence of coronary angioplasty implant and graft
CPT/HCPCS: 36415; 70450; 71045; 71275; 80053; 80061; 81001; 83735; 83880; 84484; 85007; 85025; 85027; 85379; 85610; 85730; 87081; 90935; 93005; 93306; 93886; 93926; 96361; 96365; 96375; 99152; 99153; C1894; G0378; J1642; J2250; Q9967